=== PATIENT | female | born 1970 | race Caucasian/White ===

== ENCOUNTER → 2016-04-24 | Outpatient (CLI) | payer OTHER ==
--- NOTE | 2016-04-24 09:46 | MA ---
Screening Digital Mammogram Clinical Indications: Routine screening. Technique: Standard cephalocaudal and mediolateral oblique projections are obtained. This examinati on was processed by the [employer] computer aided detection system. Comparison: September 2013 (screening and left diagnostic) Breast density: C; The breast tissue is heterogeneously dense, which could obscure detection of small masses. Findings: CAD was reviewed. Possible focal asymmetry upper outer right breast. The remainder of the r ight and left breast are stable. Impression: Focal asymmetry right breast. BI-RADS 0: Needs additional imaging evaluation, right breast.. Recommendation: Spot compression views and true lateral view. If persistent, proceed to ultrasound a t the discretion of the interpreting radiologist. Please fax a written or electronic order for a right breast diagnostic mammogram and ultrasound to . [facility] will send a result letter to the patient. Negative mammography should not preclude additional workup of a clinically suspicious finding. The patient's information is entered into a reminder system with a target due date for her next mammo gram.
== END ==
LOC: BMCIMAGING 08:41
DX: Z12.31 Encounter for screening mammogram for malignant neoplasm of breast (principal)
CPT/HCPCS: G0202

== ENCOUNTER → 2016-05-06 | Outpatient (CLI) | payer OTHER ==
--- NOTE | 2016-05-06 18:59 | MA ---
Diagnostic Digital Right Breast Mammogram May 06, 2016 HISTORY: Abnormal screening mammogram April 24, 2016, with asymmetric density upper outer right shelbie ast. TECHNIQUE: Spot compression CC and MLO mammograms of the right breast are obtained along with a medi olateral mammogram. FINDINGS: The area of parenchymal asymmetry identified on the screening study resolves completely wi th the additional mammographic views compatible with superimposed fibroglandular asymmetry. No persi stent dominant mass. IMPRESSIONS 1. Negative additional mammographic views, right breast. 2. BI-RADS 1. Recommendation: Routine annual screening mammography. [facility] will send a result letter to the patient. Negative mammography should not preclude additional work up of a clinically suspicious finding. The patient's information is entered into a reminder system with a target due date for her next mammo gram. E:[email or web address]
== END ==
LOC: BMCIMAGING 12:59
DX: R92.2 Inconclusive mammogram (principal)
CPT/HCPCS: G0206

== ENCOUNTER → 2017-06-11 | Outpatient (CLI) | payer OTHER | LOC: BMCIMAGING 08:38 | PROVIDERS: ATTEND Family Medicine | DX: Z12.31 Encounter for screening mammogram for malignant neoplasm of breast (principal) ==

== ENCOUNTER → 2018-06-22 | Outpatient (CLI) | payer OTHER | LOC: FIMAGING 09:47 | PROVIDERS: ATTEND Family Medicine | DX: T83.32XA Displacement of intrauterine contraceptive device, initial encounter (principal) ==